=== PATIENT | female | born 1985 | race Caucasian/White ===

== ENCOUNTER 2020-10-03 09:52 | Emergency (ER) | payer OTHER ==
[2020-10-03] MEDS ORDERED: Sodium Chloride 0.9% 1000 ML 1,000 ML IV STA (10:13)
[2020-10-03] MEDS ORDERED: Zofran 4 MG/2 ML VIAL IV ONE (10:14)
[2020-10-03] MEDS ORDERED: Zofran 4 MG/2 ML VIAL ONE (10:15)
[2020-10-03] MEDS ORDERED: Sodium Chloride 0.9% 1000 ML 1,000 ML ONE ×2 (10:15→12:43)
[2020-10-03 10:34] LABS: Absolute Neutrophil Ct (ANC) 3.71 (1.4-6.9); BASOPHIL % 0.2 % (0.0-0.4); Basophil (Absolute #) 0.01 (0-0.4); Eosinophil % 0.2 % (0.00-5.0); Eosinophil (Absolute #) 0.01 (0-0.5); Hematocrit 37.4 % (35-47); Hemoglobin 12.7 gm/dl (12.0-16.0); Lymphocytes % 8.8 % (24.0-44.0); Mean Cell Volume 104.8 fl (78-100); Mean Corpuscular Hemoglobin 35.6 pg (26-32); Mean Platelet Volume 12.1 fl (7.5-11.0); Monocyte (Absolute #) 0.43 (0.0-1.3); Monocytes % 9.4 % (0.0-12.0); Neutrophil % 81.4 % (36.0-66.0); Platelet Count 68 K/mm3 (150-450); Red Blood Count 3.57 M/mm3 (4.1-5.4); Red Cell Distribution Width 14.4 % (11.5-14.0); White Blood Count 4.6 K/mm3 (4.0-10.5)
[2020-10-03 10:46] LABS: INR 1.49 (0.8-3.0); PROTIME 16.9 SECONDS (9.95-12.35)
[2020-10-03 10:47] LABS: ALBUMIN 4.6 g/dL (3.5-5.0); ALKALINE PHOSPHATASE 314 U/L (38-126); AMYLASE 59 U/L (30-110); ANION GAP 20.3 MEQ/L (5-15); BLOOD UREA NITROGEN 4 mg/dL (7-17); CHLORIDE 88 mmol/L (98-107); Calcium 9.4 mg/dL (8.4-10.2); Carbon Dioxide 25 mmol/L (22-30); Creatinine 1 0.49 mg/dL (0.52-1.04); EST GLOMERULAR FILTRATION RATE > 60.0 ML/MIN; Glucose 138 mg/dL (74-106); LIPASE 296 U/L (23-300); SGOT/AST 566 U/L (14-36); SODIUM 131 mmol/L (137-145); Total Protein 9.3 g/dL (6.3-8.2)
[2020-10-03 10:54] LABS: Potassium 2.8 mmol/L (3.5-5.1)
[2020-10-03 10:55] LABS: SGPT/ALT 77 U/L (0-35)
[2020-10-03] MEDS ORDERED: Klor Con 10 MEQ PO ONE ×2 (10:56→11:06)
[2020-10-03] MEDS ORDERED: Enulose 10 GM/15 ML PO STA (10:58)
[2020-10-03 11:00] LABS: Slide Review 1 YES
[2020-10-03] MEDS ORDERED: POTASSIUM CHLORIDE 20 mEq IN WATER 100ML 100 ML IV ONE ×2 (11:06→13:15)
[2020-10-03] MEDS ORDERED: Magnesium 1 Gm / 100 Ml D5W*** 100 ML IV ONE ×2 (11:06→11:53)
[2020-10-03] MEDS: POTASSIUM CHLORIDE 20 mEq IN WATER 100ML 20 MEQ/100 ML BAG IV SCH ×2 (11:08→13:15)
[2020-10-03] MEDS: Magnesium 1 Gm / 100 Ml D5W*** 100 ML IV SCH ×2 (11:08→11:53)
--- NOTE | 2020-10-03 12:06 | ERPHSYRPT ---
- History of Present Illness Time Seen by Provider: 10/03/20 10:35 Source: patient Exam Limitations: no limitations Patient Subjective Stated Complaint: my Dr told me to come to the hospital for severe dehydration and im jaundice Triage Nursing Assessment: pt to ED c/o abnormal labs, "jaundice and dehydrated," and was sent to ED by Dr. Perez. reports she had labs drawn sometime this week and she was called yesterday and told to come in but could not until today. denies any complaints currently. appears jaundice in face and eyes. denies ETOH abuse. also appears to be shaking and pt states she has not eating or drank anything for about 1 wk d/t no appetitte and nausesated after attempting PO. Physician History: 34 years old generally healthy female sent in ER by PCP for abnormal labs. Patient reports she has been having decreased oral intake for almost 1 week with lack of appetite generalized feeling of malaise and nausea which gets worse with oral intake without any vomiting. She is also having generalized sensation of abdominal bloating/distention. She has jaundice which is worsening for almost 1 week. She denies any recent fever chills, taking Tylenol, IV drug use. She did used to drink once or twice a week but has not been drinking lately. No history of liver problems in the past. Timing/Duration: week(s) (1), gradual onset, worse Severity: moderate Associated Symptoms: nausea, abdominal pain, loss of appetite, malaise, weakness, No vomiting, No fever Allergies/Adverse Reactions: No Known Drug Allergies Allergy (Unverified 10/03/20 10:14) Home Medications: Norethindrone 0.35 mg PO DAILY 10/03/20 [History] Hx Tetanus, Diphtheria Vaccination/Date Given: Yes Hx Influenza Vaccination/Date Given: No Hx Pneumococcal Vaccination/Date Given: No Immunizations Up to Date: Yes Travel Risk - International Travel Have you traveled outside of the country in past 3 weeks: No - Coronavirus Screening Are you exhibiting any of the following symptoms?: No Close contact with a COVID-19 positive Pt in past 14-21 Days: No - Review of Systems Constitutional: Fatigue, Malaise, Weakness Eyes: No Symptoms, Other (Icterus) Ears, Nose, & Throat: No Symptoms Respiratory: No Symptoms Cardiac: No Symptoms Abdominal/Gastrointestinal: Abdominal Pain, Nausea, Appetite Changes Genitourinary Symptoms: No Symptoms Musculoskeletal: Myalgias Skin: No Symptoms Neurological: No Symptoms Psychological: No Symptoms Endocrine: No Symptoms Hematologic/Lymphatic: No Symptoms Immunological/Allergic: No Symptoms - Past Medical History Pertinent Past Medical History: No - Past Surgical History Past Surgical History: Yes Musculoskeletal: Orthopedic Surgery Other Surgical History: L shoulder at age 17 - Social History Smoking Status: Never smoker Exposure to second hand smoke: No Drug Use: none Patient Lives Alone: No - Female History Hx Now: No (menstrating now) - Nursing Vital Signs Nursing Vital Signs: Initial Vital Signs Temperature 97.8 F 10/03/20 10:03 Pulse Rate 130 H 10/03/20 10:03 Respiratory Rate 24 10/03/20 10:03 Blood Pressure 151/122 10/03/20 10:03 O2 Sat by Pulse Oximetry 97 10/03/20 10:03 Pain Scale Pain Intensity 0 - Physical Exam General Appearance: no apparent distress, alert Eye Exam: PERRL/EOMI, scleral icterus Ears, Nose, Throat Exam: normal ENT inspection, TMs normal, pharynx normal Neck Exam: normal inspection, non-tender, supple, full range of motion Respiratory Exam: normal breath sounds, lungs clear Cardiovascular Exam: normal heart sounds, tachycardia Gastrointestinal/Abdomen Exam: soft, normal bowel sounds, tenderness (Minimal upper abdominal tenderness) Back Exam: normal inspection, normal range of motion Extremity Exam: normal inspection Neurologic Exam: alert, oriented x 3, cooperative, digital court reporter II-XII nml as tested, normal mood/affect Skin Exam: normal color SpO2 Interpretation: normal SpO2: 97 O2 Delivery: Room Air - Course EKG Interpreted by Me: RATE, Sinus Tach (130), NORMAL AXIS, prolonged QT i nterval Ordered Tests: Active Orders 24 hr Category Date Time Status EKG-ER Only STAT Care 10/03/20 10:13 Active IV Insertion STAT Care 10/03/20 10:14 Active IV Insertion-2nd Peripheral STAT Care 10/03/20 11:24 Active ABDOMEN AND PELVIS W CONTRAST [CT] Stat Exams 10/03/20 10:35 Taken ACETAMINOPHEN Stat Lab 10/03/20 10:15 Completed AMYLASE Stat Lab 10/03/20 10:13 Completed BLOOD CULTURE Stat Lab 10/03/20 11:05 Received BLOOD CULTURE Stat Lab 10/03/20 11:30 Received CBC W DIFF Stat Lab 10/03/20 10:13 Completed CMP Stat Lab 10/03/20 10:13 Completed CULTURE,URINE Stat Lab 10/03/20 12:37 Received LIPASE Stat Lab 10/03/20 10:13 Completed Lactic Acid Stat Lab 10/03/20 11:03 Completed Lactic Acid Stat Lab 10/03/20 13:50 Completed MAGNESIUM Stat Lab 10/03/20 10:13 Completed PROTIME WITH INR Stat Lab 10/03/20 10:13 Completed UA W/RFX UR CULTURE Stat Lab 10/03/20 12:37 Completed Medication Summary Generic Name Dose Route Start Last Admin Trade Name Nancy PRN Reason Stop Dose Admin Magnesium Sulfate/Dextrose 100 mls @ 100 mls/hr 10/03/20 11:00 10/03/20 11:53 Magnesium 1 Gm / 100 Ml D5w IV 10/03/20 12:59 100 mls/hr Q1H [place] Administration Potassium Chloride 20 meq in 100 mls @ 50 mls/hr 10/03/20 11:00 10/03/20 13:15 Potassium Chloride 20 Meq In Water 100ml IV 10/03/20 14:59 50 mls/hr Q2H [place] Administration Sodium Chloride 1,000 mls @ 100 mls/hr 10/03/20 12:45 10/03/20 12:44 Sodium Chloride 0.9% 1000 Ml IV 11/02/20 12:44 100 mls/hr .Q10H [place] Administration Discontinued Medications Generic Name Dose Route Start Last Admin Trade Name Nancy PRN Reason Stop Dose Admin Sodium Chloride 1,000 mls @ 500 mls/hr 10/03/20 10:13 10/03/20 12:59 Sodium Chloride 0.9% 1000 Ml IV 10/03/20 12:12 Infused .Q2H STA Infusion Sodium Chloride Confirm 10/03/20 10:15 Sodium Chloride 0.9% 1000 Ml Administered 10/03/20 10:16 Dose 1,000 mls @ ud .ROUTE .STK-MED ONE Piperacillin Sod/Tazobactam 100 mls @ 200 mls/hr 10/03/20 12:09 10/03/20 12:33 Sod 3.375 gm/ Sodium Chloride IV 10/03/20 12:38 200 mls/hr STAT ONE Administration Sodium Chloride Confirm 10/03/20 12:29 Sodium Chloride 100ml Mini-Bag Plus Administered 10/03/20 12:30 Dose 100 mls @ ud IV .STK-MED ONE Lactulose 20 g 10/03/20 10:58 10/03/20 11:22 Enulose 10 Gm/15 Ml PO 10/03/20 10:59 20 g ONCE STA Administration Ondansetron HCl 4 mg 10/03/20 10:14 10/03/20 10:16 Zofran 4 Mg/2 Ml Vial IV 10/03/20 10:15 4 mg STAT ONE Administration Ondansetron HCl Confirm 10/03/20 10:15 Zofran 4 Mg/2 Ml Vial Administered 10/03/20 10:16 Dose 4 mg .ROUTE .STK-MED ONE Piperacillin Sod/Tazobactam Sod Confirm 10/03/20 12:29 Zosyn 3.375 Gm Vial Administered 10/03/20 12:30 Dose 3.375 gm IV .STK-MED ONE Potassium Chloride 40 meq 10/03/20 10:56 10/03/20 11:07 Klor Con 10 Meq PO 10/03/20 10:57 40 meq STAT ONE Administration Potassium Chloride Confirm 10/03/20 11:06 Klor Con 10 Meq Administered 10/03/20 11:07 Dose 40 meq PO .STK-MED ONE Lab/Rad Data: Laboratory Result Diagrams 10/03/20 10:13 10/03/20 10:13 Laboratory Results 10/03/20 10/03/20 10/03/20 Range/Units 13:50 12:37 11:03 WBC (4.0-10.5) K/mm3 RBC (4.1-5.4) M/mm3 Hgb (12.0-16.0) gm/dl Hct (35-47) % MCV (78-100) fl MCH (26-32) pg MCHC (32-36) g/dl RDW (11.5-14.0) % Plt Count (150-450) K/mm3 MPV (7.5-11.0) fl Gran % (36.0-66.0) % Eos # (Auto) (0-0.5) Absolute Lymphs (auto) (1.0-4.6) Absolute Monos (auto) (0.0-1.3) Lymphocytes % (24.0-44.0) % Monocytes % (0.0-12.0) % Eosinophils % (0.00-5.0) % Basophils % (0.0-0.4) % Absolute Granulocytes (1.4-6.9) Basophils # (0-0.4) PT (9.95-12.35) SECONDS INR (0.8-3.0) Sodium (137-145) mmol/L Potassium (3.5-5.1) mmol/L Chloride (98-107) mmol/L Carbon Dioxide (22-30) mmol/L Anion Gap (5-15) MEQ/L BUN (7-17) mg/dL Creatinine (0.52-1.04) mg/dL Estimated GFR ML/MIN Glucose (74-106) mg/dL Lactic Acid 3.0 H 5.3 H (0.4-2.0) Calcium (8.4-10.2) mg/dL Magnesium (1.6-2.3) mg/dL Total Bilirubin (0.2-1.3) mg/dL AST (14-36) U/L ALT (0-35) U/L Alkaline Phosphatase (38-126) U/L Ammonia (9-30) umol/L Serum Total Protein (6.3-8.2) g/dL Albumin (3.5-5.0) g/dL Amylase (30-110) U/L Lipase (23-300) U/L Urine Color YSED (YELLOW) Urine Appearance CLEAR (CLEAR) Urine pH 7.0 (5-6) Ur Specific [place] S3 (1.005-1.025) Urine Protein NEGATIVE (Negative) Urine Ketones NEGATIVE (NEGATIVE) Urine Blood LARGE (0-5) King/ul Urine Nitrite NEGATIVE (NEGATIVE) Urine Bilirubin MODERATE (NEGATIVE) Urine Urobilinogen 4 (0-1) mg/dL Ur Leukocyte Esterase NEGATIVE (NEGATIVE) Urine WBC (Auto) 3-5 (0-5) /HPF Urine RBC (Auto) 3-5 (0-2) /HPF U Epithel Cells (Auto) RARE (FEW) /HPF Urine Bacteria (Auto) RARE (NEGATIVE) /HPF Urine Culture Reflexed YES (NO) Urine Glucose NEGATIVE (NEGATIVE) mg/dL Acetaminophen (10-30) ug/ml Slides for Path Review 10/03/20 10/03/2021 Range/Units 10:15 10:13 10:13 WBC (4.0-10.5) K/mm3 RBC (4.1-5.4) M/mm3 Hgb (12.0-16.0) gm/dl Hct (35-47) % MCV (78-100) fl MCH (26-32) pg MCHC (32-36) g/dl RDW (11.5-14.0) % Plt Count (150-450) K/mm3 MPV (7.5-11.0) fl Gran % (36.0-66.0) % Eos # (Auto) (0-0.5) Absolute Lymphs (auto) (1.0-4.6) Absolute Monos (auto) (0.0-1.3) Lymphocytes % (24.0-44.0) % Monocytes % (0.0-12.0) % Eosinophils % (0.00-5.0) % Basophils % (0.0-0.4) % Absolute Granulocytes (1.4-6.9) Basophils # (0-0.4) PT 16.9 H (9.95-12.35) SECONDS INR 1.49 (0.8-3.0) Sodium (137-145) mmol/L Potassium (3.5-5.1) mmol/L Chloride (98-107) mmol/L Carbon Dioxide (22-30) mmol/L Anion Gap (5-15) MEQ/L BUN (7-17) mg/dL Creatinine (0.52-1.04) mg/dL Estimated GFR ML/MIN Glucose (74-106) mg/dL Lactic Acid (0.4-2.0) Calcium (8.4-10.2) mg/dL Magnesium (1.6-2.3) mg/dL Total Bilirubin (0.2-1.3) mg/dL AST (14-36) U/L ALT (0-35) U/L Alkaline Phosphatase (38-126) U/L Ammonia 118 H (9-30) umol/L Serum Total Protein (6.3-8.2) g/dL Albumin (3.5-5.0) g/dL Amylase (30-110) U/L Lipase (23-300) U/L Urine Color (YELLOW) Urine Appearance (CLEAR) Urine pH (5-6) Ur Specific [place] (1.005-1.025) Urine Protein (Negative) Urine Ketones (NEGATIVE) Urine Blood (0-5) King/ul Urine Nitrite (NEGATIVE) Urine Bilirubin (NEGATIVE) Urine Urobilinogen (0-1) mg/dL Ur Leukocyte Esterase (NEGATIVE) Urine WBC (Auto) (0-5) /HPF Urine RBC (Auto) (0-2) /HPF U Epithel Cells (Auto) (FEW) /HPF Urine Bacteria (Auto) (NEGATIVE) /HPF Urine Culture Reflexed (NO) Urine Glucose (NEGATIVE) mg/dL Acetaminophen < 10 L (10-30) ug/ml Slides for Path Review 10/03/20 10/03/20 Range/Units 10:13 10:13 WBC 4.6 (4.0-10.5) K/mm3 RBC 3.57 L (4.1-5.4) M/mm3 Hgb 12.7 (12.0-16.0) gm/dl Hct 37.4 (35-47) % MCV 104.8 H (78-100) fl MCH 35.6 H (26-32) pg MCHC 34.0 (32-36) g/dl RDW 14.4 H (11.5-14.0) % Plt Count 68 L (150-450) K/mm3 MPV 12.1 H (7.5-11.0) fl Gran % 81.4 H (36.0-66.0) % Eos # (Auto) 0.01 (0-0.5) Absolute Lymphs (auto) 0.40 L (1.0-4.6) Absolute Monos (auto) 0.43 (0.0-1.3) Lymphocytes % 8.8 L (24.0-44.0) % Monocytes % 9.4 (0.0-12.0) % Eosinophils % 0.2 (0.00-5.0) % Basophils % 0.2 (0.0-0.4) % Absolute Granulocytes 3.71 (1.4-6.9) Basophils # 0.01 (0-0.4) PT (9.95-12.35) SECONDS INR (0.8-3.0) Sodium 131 L (137-145) mmol/L Potassium 2.8 L* (3.5-5.1) mmol/L Chloride 88 L (98-107) mmol/L Carbon Dioxide 25 (22-30) mmol/L Anion Gap 20.3 H (5-15) MEQ/L BUN 4 L (7-17) mg/dL Creatinine 0.49 L (0.52-1.04) mg/dL Estimated GFR > 60.0 ML/MIN Glucose 138 H (74-106) mg/dL Lactic Acid (0.4-2.0) Calcium 9.4 (8.4-10.2) mg/dL Magnesium 1.0 L* (1.6-2.3) mg/dL Total Bilirubin 19.00 H (0.2-1.3) mg/dL AST 566 H (14-36) U/L ALT 77 H (0-35) U/L Alkaline Phosphatase 314 H (38-126) U/L Ammonia (9-30) umol/L Serum Total Protein 9.3 H (6.3-8.2) g/dL Albumin 4.6 (3.5-5.0) g/dL Amylase 59 (30-110) U/L Lipase 296 (23-300) U/L Urine Color (YELLOW) Urine Appearance (CLEAR) Urine pH (5-6) Ur Specific [place] (1.005-1.025) Urine Protein (Negative) Urine Ketones (NEGATIVE) Urine Blood (0-5) King/ul Urine Nitrite (NEGATIVE) Urine Bilirubin (NEGATIVE) Urine Urobilinogen (0-1) mg/dL Ur Leukocyte Esterase (NEGATIVE) Urine WBC (Auto) (0-5) /HPF Urine RBC (Auto) (0-2) /HPF U Epithel Cells (Auto) (FEW) /HPF Urine Bacteria (Auto) (NEGATIVE) /HPF Urine Culture Reflexed (NO) Urine Glucose (NEGATIVE) mg/dL Acetaminophen (10-30) ug/ml Slides for Path Review YES - Progress Progress Note: 10/03/20 12:06 She is given fluid bolus, work-up showed normal white count and H&H with a platelet of 68 and INR 1.4. She has liver failure with elevated transaminases and bilirubin of 19. She also has hypokalemia 2.8 and hypomagnesium 1.0. She is getting replacements. I have checked her ammonia level as patient seemed a little slow to response and it is 118. She would be given oral lactulose. I have obtained CT abdomen pelvis with contrast which showed fatty liver with little fluid around and finding suggesting of hepatitis but no other acute intra-abdominal findings. Patient is tachycardic on presentation and has a lactate of 5.3, will give her fluid bolus per protocol. I would also give her a dose of antibiotic as well although elevation in lactate seems secondary to liver failure. I believe patient needs higher level of care with GI/hepatology services. I have discussed with Dr. Milton Sam at [place] [facility], do not feel comfortable taking patient at [place] and recommended transfer to hepatology. Transfer center is contacted. I have discussed with Dr. Gonzalez pathology and patient is accepted for trans [facility]. I have discussed plan with patient of going to [facility] but she does not want to go there at all. She wants to go to [place]. 10/03/20 12:40 I have discussed with Dr. Lou at [facility] and patient is accepted for transfer initially but after discussion with GI on-call at [facility] it was recommended to transfer to . Plan discussed with patient and she agrees with it now. 10/03/20 12:40 10/03/20 14:25 Later patient showed up and he revealed that patient drinks heavily un til lately and patient did confirm but she says that she has stopped drinking almost 2 weeks ago. Her hepatic failure could be secondary to alcohol-related. Discussed with Dr.: Other (Dr. Milton Sam [facility]. Dr. Gonzalez . Dr. Lou [facility]) Counseled pt/family regarding: lab results, diagnosis, need for follow-up, rad results - Departure Departure Disposition: Transfer Clinical Impression: Hypokalemia, Hypomagnesemia, Lactic acidosis, Alcohol abuse Hepatic failure Qualifiers: Liver failure chronicity: acute Hepatic coma status: without hepatic coma Qualified Code(s): K72.00 - Acute and subacute hepatic failure without coma Condition: Serious Critical Care Time: Yes Critical Care Time(excluding separately billable procedures): Critical 75-104 mins Referrals: ANAMIKA COOK [Primary Care Provider] -
[2020-10-03] MEDS ORDERED: Zosyn 3.375 GM Vial 3.375 GM in Sodium Chloride 100ML MINI-BAG PLUS 100 ML IV ONE (12:09)
[2020-10-03] MEDS ORDERED: Zosyn 3.375 GM Vial IV ONE (12:29)
[2020-10-03] MEDS ORDERED: Sodium Chloride 100ML MINI-BAG PLUS 100 ML IV ONE (12:29)
[2020-10-03] MEDS ORDERED: Sodium Chloride 0.9% 1000 ML 1,000 ML IV SCH (12:45)
[2020-10-03 13:21] LABS: Appearance CLEAR (CLEAR); Bacteria RARE /HPF (NEGATIVE); Bilirubin MODERATE (NEGATIVE); Blood LARGE Ery/ul (0-5); Epithelial Cells RARE /HPF (FEW); Glucose NEGATIVE (NEGATIVE); Ketones NEGATIVE (NEGATIVE); Leukocyte Esterase NEGATIVE (NEGATIVE); Nitrite NEGATIVE (NEGATIVE); Protein,Urine Dip NEGATIVE (Negative); Urobilinogen 4 mg/dL (0-1)
[2020-10-03 15:15] VITALS: BP 114/82; PULSE 108
[2020-10-03 15:29] VITALS: O2SAT 97
--- NOTE | 2020-10-03 17:02 | XRAY ---
Indication: General abdomen discomfort. Dehydration. Multiple contiguous axial images obtained through the abdomen and pelvis using 80 cc Isovue 370 contrast only. Comparison: None Lung bases are clear. Heart is not enlarged. Noncontrasted stomach and bowel loops appear nonobstructed. Normal appendix. Mildly distended gallbladder without gallstones or biliary distention. Fatty hepatomegaly measuring 23.7 cm. Splenomegaly measuring 14 cm. 2.2 cm right mid renal cyst. There is tiny infrahepatic fluid along the right colic gutter. No walled off fluid collection or free air. Incidental tampon in situ. Remaining liver, gallbladder, pancreas, spleen, adrenal glands, kidneys, ureters, bladder, and aorta appear unremarkable. No pathologic retroperitoneal lymphadenopathy. Osseous structures intact with minimal degenerative changes throughout the thoracolumbar spine. Impression: 1. Fatty hepatomegaly, splenomegaly, and right renal cyst. 2. Mildly distended gallbladder. Sonogram may yield further information if clinically warranted. 3. Nonspecific tiny right colic gutter free fluid. Comment: Preliminary interpretation was made by [facility]. No critical discrepancy.
== END 2020-10-03 15:40 | disposition short-term general hospital (02) ==
LOC: ED 09:52
DX: E87.6 Hypokalemia (principal); E83.42 Hypomagnesemia; E87.2 Acidosis; F10.10 Alcohol abuse, uncomplicated; K72.00 Acute and subacute hepatic failure without coma; R11.0 Nausea; R10.9 Unspecified abdominal pain; R63.0 Anorexia; R53.81 Other malaise; R53.1 Weakness
CPT/HCPCS: 36000; 36415; 74177; 80053; 80074; 80307; 81001; 82140; 82150; 83605; 83690; 83735; 85025; 85610; 87040; 87086; 93005; 96360; 96361; 96365; 96366; 96367; 96368; 96374; 99285; 99291; 99292; J2405; J3475; J3480; A9270-GY

== ENCOUNTER 2023-03-12 18:49 | Observation (INO) | payer OTHER ==
[2023-03-12 19:57] LABS: Amphetamine,Urine NEGATIVE (NEGATIVE); Barbiturate,Urine NEGATIVE (NEGATIVE); Benzodiazepine,Urine NEGATIVE (NEGATIVE); Cocaine,Urine NEGATIVE (NEGATIVE); Methadone,Urine NEGATIVE (NEGATIVE); Opiate,Urine NEGATIVE (NEGATIVE); PCP,Urine NEGATIVE (NEGATIVE); THC,Urine NEGATIVE (NEGATIVE)
[2023-03-12 20:21] LABS: Appearance Clear (Clear); Bacteria None Seen /HPF (None Seen); Bilirubin Negative (Negative); Blood Negative (Negative); Epithelial Cells None Seen /HPF (None Seen); Glucose, Urine Negative (Negative); Hyaline Casts NONE SEEN /LPF (0-2); Ketones Negative (Negative); Leukocyte Esterase Small (Negative); Nitrite Negative (Negative); Ph 7.5 (4.6-8.0); Protein,Urine Dip Negative (Negative); RBC 0-2 /HPF (0-5)
[2023-03-12 20:22] LABS: ADD URINE CULTURE? NO (NO)
[2023-03-12] MEDS ORDERED: TYLENOL EXTRA STRENGTH 500 MG PO PRN (21:05)
[2023-03-12] MEDS ORDERED: Nubain 10 MG/ML IV PRN (21:06)
[2023-03-13 04:33] VITALS: O2SAT 100
[2023-03-13 06:49] VITALS: BP 153/73; PULSE 65
== END 2023-03-13 06:50 | disposition home or self-care (01) ==
LOC: OB 18:49
PROVIDERS: ADMIT Obstetrics & Gynecology; ATTEND Obstetrics & Gynecology
DX: Z34.83 Encounter for supervision of other normal pregnancy, third trimester (principal); Z3A.38 38 weeks gestation of pregnancy
CPT/HCPCS: 80307; 81001; G0378; G0379; A9270-GY

== ENCOUNTER 2023-03-15 01:03 | Inpatient (IN) | payer OTHER ==
[2023-03-15] MEDS ORDERED: XYLOCAINE 1% HCL 20 ML MDV IJ PRN (03:10)
[2023-03-15] MEDS ORDERED: Ephedrine Sulfate 50 MG/ML IV PRN (03:19)
[2023-03-15] MEDS ORDERED: Zofran 4 MG/2 ML VIAL IV PRN (06:00)
[2023-03-15] MEDS ORDERED: PITOCIN 30 UNITS/ LR 500 ML 30 UNITS/500 ML PLAST..BAG IV SCH (07:00)
[2023-03-15] MEDS ORDERED: FENTANYL 2 MCG-BUPIV 0.125%-NS 250 ML Epidur 250 ML EPIDURAL SCH (07:00)
[2023-03-15] MEDS ORDERED: Lactated Ringers 1,000 ML IV SCH (07:00)
[2023-03-15] MEDS ORDERED: Lactated Ringers 1,000 ML IV ONE (07:00)
[2023-03-15 07:12] LABS: Absolute Neutrophil Ct (ANC) 5.39 x10^3/uL (1.4-6.9); BASOPHIL % 0.4 % (0.0-0.4); Basophil (Absolute #) 0.03 x10^3/uL (0-0.4); Eosinophil % 0.8 % (0.00-5.0); Eosinophil (Absolute #) 0.06 x10^3/uL (0-0.5); Hematocrit 35.1 % (35-47); Hemoglobin 11.6 g/dL (12.0-16.0); IMMATURE GRAN # 0.02 x10^3u/L (0.00-0.03); IMMATURE GRAN % 0.3 % (0.00-0.4); Lymphocytes % 17.9 % (24.0-44.0); Mean Cell Volume 87.8 fL (78-100); Mean Platelet Volume 11.1 fL (7.5-11.0); Monocyte (Absolute #) 0.47 x10^3/uL (0.0-1.3); Monocytes % 6.5 % (0.0-12.0); Neutrophil % 74.1 % (36.0-66.0); Platelet Count 123 x10^3/uL (150-450); Red Cell Distribution Width 13.8 % (11.5-14.0); White Blood Count 7.3 x10^3/uL (4.0-10.5)
[2023-03-15 07:49] LABS: ABO TYPING O; Antibody Screen NEGATIVE (NEGATIVE); RH TYPING POSITIVE
[2023-03-15 08:22] LABS: Slide Review 1 YES
[2023-03-15] MEDS ORDERED: APRESOLINE 20 MG/ML INJ ONE (10:57)
[2023-03-15 18:44] LABS: Amphetamine,Urine NEGATIVE (NEGATIVE); Barbiturate,Urine NEGATIVE (NEGATIVE); Benzodiazepine,Urine NEGATIVE (NEGATIVE); Cocaine,Urine NEGATIVE (NEGATIVE); Methadone,Urine NEGATIVE (NEGATIVE); Opiate,Urine NEGATIVE (NEGATIVE); PCP,Urine NEGATIVE (NEGATIVE); THC,Urine NEGATIVE (NEGATIVE)
[2023-03-15 19:27] LABS: Appearance Clear (Clear); Bacteria Rare /HPF (None Seen); Bilirubin Negative (Negative); Blood Negative (Negative); Epithelial Cells Moderate /HPF (None Seen); Glucose, Urine Negative (Negative); Hyaline Casts NONE SEEN /LPF (0-2); Ketones Negative (Negative); Leukocyte Esterase Small (Negative); Nitrite Negative (Negative); Protein,Urine Dip 30 (Negative); RBC 0-2 /HPF (0-5)
[2023-03-15 19:28] LABS: ADD URINE CULTURE? NO (NO)
[2023-03-15] MEDS ORDERED: Dermoplast Spray TP PRN (22:01)
[2023-03-15] MEDS ORDERED: TYLENOL EXTRA STRENGTH 500 MG PO PRN (22:01)
[2023-03-15] MEDS ORDERED: Mylicon 80MG PO PRN (22:01)
[2023-03-15] MEDS ORDERED: LANSINOH 40 GM TOP PRN (22:01)
[2023-03-15] MEDS ORDERED: TUCKS TP PRN (22:01)
[2023-03-15] MEDS: MOTRIN 400 MG PO PRN (22:17)
[2023-03-16 05:31] LABS: Absolute Neutrophil Ct (ANC) 4.87 x10^3/uL (1.4-6.9); BASOPHIL % 0.5 % (0.0-0.4); Basophil (Absolute #) 0.04 x10^3/uL (0-0.4); Eosinophil % 1.2 % (0.00-5.0); Eosinophil (Absolute #) 0.09 x10^3/uL (0-0.5); Hematocrit 34.9 % (35-47); Hemoglobin 11.4 g/dL (12.0-16.0); IMMATURE GRAN # 0.02 x10^3u/L (0.00-0.03); IMMATURE GRAN % 0.3 % (0.00-0.4); Lymphocyte (Absolute #) 1.93 x10^3/uL (1.0-4.6); Lymphocytes % 25.7 % (24.0-44.0); Mean Cell Volume 88.8 fL (78-100); Mean Corpuscular Hgb Concent. 32.7 g/dL (32-36); Mean Platelet Volume 10.8 fL (7.5-11.0); Monocyte (Absolute #) 0.56 x10^3/uL (0.0-1.3); Monocytes % 7.5 % (0.0-12.0); Neutrophil % 64.8 % (36.0-66.0); Platelet Count 118 x10^3/uL (150-450); Red Blood Count 3.93 x10^6/uL (4.1-5.4); Red Cell Distribution Width 13.7 % (11.5-14.0); White Blood Count 7.5 x10^3/uL (4.0-10.5)
--- NOTE | 2023-03-16 11:36 | PCM.NOTE ---
Date and Time: 03/16/23 1135 Subjective Assessment: ppd 1 sp pt resting in bed and doing well able to ambulate and tolerate diet vss afebrile abd; soft uterus; firm lochia; mild a/p sp ppd 1 anticipate discharge tomorrow OBJECTIVE DATA Vital Signs: Vital Signs - 24 hr Temp Pulse Resp BP BP Pulse Ox 03/16/23 08:00 97.1 F 64 18 157/74 99 03/16/23 03:00 48 L 18 158/74 99 03/15/23 22:00 97.8 F 46 L 16 145/69 95 03/15/23 18:15 46 L 17 152/73 100 03/15/23 16:15 52 L 16 151/79 100 03/15/23 15:15 44 L 16 142/68 100 03/15/23 14:45 44 L 16 147/73 100 03/15/23 14:15 45 L 16 143/67 100 03/15/23 14:00 98.8 F 42 L 16 149/76 100 03/15/23 13:45 47 L 16 117/60 99 03/15/23 13:30 98.8 F 55 L 18 141/64 100 03/15/23 13:19 65 18 167/78 100 03/15/23 13:00 47 L 17 159/74 99 03/15/23 12:45 48 L 16 159/72 100 03/15/23 12:30 47 L 16 121/56 98 03/15/23 12:15 52 L 16 129/76 97 03/15/23 12:00 56 L 16 131/64 98 03/15/23 11:45 98.2 F 52 L 16 137/67 95 Pain Assessment - Last Documented Pain Intensity [Lower] 2 Pain Intensity 1 Pain Scale Used 0-10 Pain Scale Intake and Output: Intake & Output 03/13/23 03/14/23 03/15/23 03/16/23 11:59 11:59 11:59 11:59 Intake Total 800 400 Output Total 400 Balance 800 0 Weight 214 kg Lab Results: Lab Results-Last 24 Hours 03/15/23 03/15/23 03/16/23 Range/Units 17:45 17:45 05:20 WBC 7.5 (4.0-10.5) x10^3/uL RBC 3.93 L (4.1-5.4) x10^6/uL Hgb 11.4 L (12.0-16.0) g/dL Hct 34.9 L (35-47) % MCV 88.8 (78-100) fL MCH 29.0 (26-32) pg MCHC 32.7 (32-36) g/dL RDW 13.7 (11.5-14.0) % Plt Count 118 L (150-450) x10^3/uL MPV 10.8 (7.5-11.0) fL Gran % 64.8 (36.0-66.0) % Immature Gran % (Auto) 0.3 (0.00-0.4) % Nucleat RBC Rel Count 0.0 (0.00-0.1) % Eos # (Auto) 0.09 (0-0.5) x10^3/uL Immature Gran # (Auto) 0.02 (0.00-0.03) x10^3u/L Absolute Lymphs (auto) 1.93 (1.0-4.6) x10^3/uL Absolute Monos (auto) 0.56 (0.0-1.3) x10^3/uL Absolute Nucleated RBC 0.00 (0.00-0.01) x10^3u/L Lymphocytes % 25.7 (24.0-44.0) % Monocytes % 7.5 (0.0-12.0) % Eosinophils % 1.2 (0.00-5.0) % Basophils % 0.5 (0.0-0.4) % Absolute Granulocytes 4.87 (1.4-6.9) x10^3/uL Basophils # 0.04 (0-0.4) x10^3/uL Urine Color Dark Yellow A (Yellow) Urine Appearance Clear (Clear) Urine pH 7.0 (4.6-8.0) Ur Specific [place] 1.020 (1.005-1.030) Urine Protein 30 (Negative) Urine Glucose (UA) Negative (Negative) mg/dL Urine Ketones Negative (Negative) Urine Blood Negative (Negative) Urine Nitrite Negative (Negative) Urine Bilirubin Negative (Negative) Urine Urobilinogen 1.0 A (0.2) mg/dL Ur Leukocyte Esterase Small A (Negative) U Hyaline Cast (Auto) NONE SEEN (0-2) /LPF Urine Microscopic RBC 0-2 (0-5) /HPF Urine Microscopic WBC 3-5 (0-5) /HPF Ur Epithelial Cells Moderate A (None Seen) /HPF Urine Bacteria Rare A (None Seen) /HPF Urine Culture Reflexed NO (NO) Urine Opiates Level NEGATIVE (NEGATIVE) Ur Methadone NEGATIVE (NEGATIVE) Urine Barbiturates NEGATIVE (NEGATIVE) Ur Phencyclidine (PCP) NEGATIVE (NEGATIVE) Urine Amphetamine NEGATIVE (NEGATIVE) U Benzodiazepine Level NEGATIVE (NEGATIVE) Urine Cocaine NEGATIVE (NEGATIVE) Urine Marijuana (THC) NEGATIVE (NEGATIVE) Assessment/Plan (1) Vaginal delivery Current Visit: Yes Status: Acute Code(s): O80 - ENCOUNTER FOR FULL-TERM UNCOMPLICATED DELIVERY
[2023-03-16] MEDS: Docusate Sodium 100 MG PO SCH ×2 (23:38→23:39)
[2023-03-17] MEDS: MOTRIN 400 MG PO PRN (06:43)
[2023-03-17] MEDS ORDERED: APRESOLINE 20 MG/ML INJ IV ONE (09:48)
[2023-03-17] MEDS ORDERED: Adacel Vial IM ONE (10:00)
[2023-03-17] MEDS: Adalat CC 30 MG TABLET PO SCH (12:01)
[2023-03-17] MEDS: Docusate Sodium 100 MG PO SCH (12:06)
--- NOTE | 2023-03-17 12:49 | PCM.NOTE ---
Date and Time: 03/17/231247 Subjective Assessment: ppd 2 sp with htn pt resting in bed and doing well ambulating and tolerating diet bp 170/90 abd soft uterus; firm lochia; mild a/p sp with htn will initiate htn protocol will give procardia 30mg xl will hold discharge at this time OBJECTIVE DATA Vital Signs: Vital Signs - 24 hr Temp Pulse Resp BP BP Pulse Ox 03/17/23 12:00 96.3 F 45 L 16 134/56 100 03/17/23 11:45 96.3 F 52 L 16 141/64 100 03/17/23 11:30 96.3 F 52 L 16 143/62 100 03/17/23 11:20 147/70 03/17/23 11:15 96.3 F 50 L 16 132/60 100 03/17/23 11:10 132/60 03/17/23 11:00 130/63 03/17/23 10:50 130/60 03/17/23 10:40 96.3 F 48 L 16 133/63 133/63 100 03/17/23 10:20 141/65 03/17/23 09:55 167/81 03/17/23 09:40 178/83 03/17/23 09:35 97.7 F 53 L 16 195/86 100 03/17/23 06:50 98 F 100 H 18 109/80 98 03/16/23 20:00 98 F 50 L 16 159/74 99 03/16/23 14:00 997.9 F 57 L 18 157/82 98 Pain Assessment - Last Documented Pain Intensity [Lower] 2 Pain Intensity 2 Pain Scale Used 0-10 Pain Scale Intake and Output: Intake & Output 03/15/23 03/16/23 03/17/23 03/18/23 11:59 11:59 11:59 11:59 Intake Total 800 900 500 Output Total 400 Balance 800 500 500 Weight 214 kg Assessment/Plan (1) Vaginal delivery Current Visit: Yes Status: Acute Code(s): O80 - ENCOUNTER FOR FULL-TERM UNCOMPLICATED DELIVERY
[2023-03-17] MEDS: TYLENOL EXTRA STRENGTH 500 MG PO PRN (20:03)
[2023-03-18] MEDS: MOTRIN 400 MG PO PRN (01:20)
[2023-03-18] MEDS: TYLENOL EXTRA STRENGTH 500 MG PO PRN (06:02)
[2023-03-18] MEDS: Docusate Sodium 100 MG PO SCH (06:05)
[2023-03-18] MEDS: Adalat CC 30 MG TABLET PO SCH (09:27)
--- NOTE | 2023-03-18 09:37 | PCM.NOTE ---
Date and Time: 03/18/23934 Subjective Assessment: ppd 3 sp with htn pt resting in bed and doing well able to ambulate and tolerate diet. pt received hydralizaine iv yesterday for bp greater than 170 and had been reduced however with continued elevation and was started on procardia 30mg xl and currently stable. denies glez or visual disturbance and states feeling very well. vss afebrile abd; soft uterus; firm lochia; mild a/psp htn will continue daily procardia 30mg xl upon discharge will dc home today and fu office next week OBJECTIVE DATA Vital Signs: Vital Signs - 24 hr Temp Pulse Resp BP BP Pulse Ox 03/18/23 06:00 97.9 F 76 18 146/80 100 03/18/23 02:00 97.8 F 55 L 18 148/80 99 03/17/23 22:00 97 F 50 L 16 136/69 96 03/17/23 18:01 140/78 03/17/23 16:30 144/84 03/17/23 14:00 142/78 03/17/23 13:10 146/78 03/17/23 13:09 42 L 16 165/87 100 03/17/23 13:00 158/82 03/17/23 12:50 139/72 03/17/23 12:45 96.2 F 43 L 16 139/72 99 03/17/23 12:30 159/78 03/17/23 12:15 96.2 F 43 L 16 157/56 100 03/17/23 12:00 96.3 F 45 L 16 134/56 100 03/17/23 11:45 96.3 F 52 L 16 141/64 100 03/17/23 11:30 96.3 F 52 L 16 143/62 100 03/17/23 11:20 147/70 03/17/23 11:15 96.3 F 50 L 16 132/60 100 03/17/23 11:10 132/60 03/17/23 11:00 130/63 03/17/23 10:50 130/60 03/17/23 10:40 96.3 F 48 L 16 133/63 133/63 100 03/17/23 10:20 141/65 03/17/23 09:55 167/81 03/17/23 09:40 178/83 Pain Assessment - Last Documented Pain Intensity [Lower] 2 Pain Intensity 2 Pain Scale Used 0-10 Pain Scale Intake and Output: Intake & Output 03/15/23 03/16/23 03/17/23 03/18/23 11:59 11:59 11:59 11:59 Intake Total 800 358 145 0246 Output Total 400 Balance 800 023 277 1537 Weight 214 kg Assessment/Plan (1) Vaginal delivery Current Visit: Yes Status: Acute Code(s): O80 - ENCOUNTER FOR FULL-TERM UNCOMPLICATED DELIVERY (2) hypertension Current Visit: Yes Status: Acute Code(s): O16.5 - UNSPECIFIED MATERNAL HYPERTENSION, COMP THE PUERPERIUM
[2023-03-18 09:40] VITALS: BP 145/90; PULSE 68; O2SAT 99
--- NOTE | 2023-03-18 09:42 | PCM.DS ---
Discharge Summary Date of Admission: 03/15/23 09:37 Admitting Physician: LUZ ESCAMILLA DO Consults: Consults on Case 03/15/23 08:00 Notify Anesthesia Provider PRN 03/16/23 09:00 Navigation ONCE Primary Care Provider: MARY HOUGH Allergies Allergies No Known Drug Allergies Allergy (Verified 02/24/23 09:14) Hospital Summary - Hospital Course Hospital Course: pt admitted on march 15 for pitocin induction at 39 wks gestation and delivered live baby girl without complication. during period developed elevated bp greater than 170 and was placed on iv hydralizine which reduced bp however still developed elevated bp requiring procardia 30mg xl and has since been better. at this time pt doing well and stable for discharge and was advised to fu in office in 1 1/2 wks for eval of bp. pt will go home on procardia 30mg xl and all questions answered to her satisfaction. pt stable for discharge at this time. - Vitals & Intake/Output Vital Signs: Vital Signs Temperature 97.9 F 03/18/23 06:00 Pulse Rate 76 03/18/23 06:00 Respiratory Rate 18 03/18/23 06:00 Blood Pressure 146/80 03/18/23 06:00 O2 Sat by Pulse Oximetry 100 03/18/23 06:00 Intake & Output: Intake & Output 03/15/23 03/16/23 03/17/23 03/18/23 11:59 11:59 11:59 11:59 Intake Total 800 542 623 2748 Output Total 400 Balance 800 689 268 8161 Weight 214 kg - Lab Result Diagrams: 03/16/23 05:20 Final Diagnosis/Problem List - Final Discharge Diagnosis/Problem (1) Vaginal delivery Current Visit: Yes Status: Acute Code(s): O80 - ENCOUNTER FOR FULL-TERM UNCOMPLICATED DELIVERY (2) hypertension Current Visit: Yes Status: Acute Code(s): O16.5 - UNSPECIFIED MATERNAL HYPERTENSION, COMP THE PUERPERIUM - Discharge Disposition: Home, Self-Care Condition: Stable Prescriptions: New Nifedipine Xl 30 mg [Adalat CC 30 MG TABLET] 30 mg PO DAILY #30 tablet No Action Sertraline HCl 50 mg [Zoloft 50 mg Tablet] 50 mg PO HS Pnv No.95/Ferrous Fum/Folic AC [ Caplet] 1 mg PO DAILY Aspirin [[place]] 1 mg PO HS Follow up with: MARY HOUGH [Primary Care Provider] - LUZ ESCAMILLA DO [ACTIVE STAFF] - 03/30/23 2:00 pm (needs to fu in office on march 30 for evaluation of blood pressure)
== END 2023-03-18 10:30 | disposition home or self-care (01) | DRG 807 ==
LOC: OB 05:59 → OBSVTOIN 09:37 → OB 09:37
PROVIDERS: ADMIT Obstetrics & Gynecology; ATTEND Obstetrics & Gynecology
PROC: 10E0XZZ Delivery of Products of Conception, External Approach (ICD-10-PCS; principal; 2023-03-15)
DX: O16.5 Unspecified maternal hypertension, complicating the puerperium (principal); Z37.0 Single live birth; Z3A.39 39 weeks gestation of pregnancy; Z20.828 Contact with and (suspected) exposure to other viral communicable diseases
CPT/HCPCS: 36415; 80307; 81001; 85025; 86850; 86900; 86901; 90715; 96372; G0378; G0379; J0360; J2590; A9270-GY

== ENCOUNTER 2023-03-30 13:21 | Emergency (ER) | payer OTHER ==
--- NOTE | 2023-03-30 13:34 | ERPHSYRPT ---
- History of Present Illness Time Seen by Provider: 03/30/23 13:33 Source: patient Exam Limitations: no limitations Physician History: This is a 37-year-old overweight white female who is approximately 2 to 2-1/2 weeks post normal spontaneous vaginal delivery of her third child. She was monitored in the hospital after delivery because of high blood pressure problems. She was seen at her bag builder's office today and she had a systolic blood pressure over 160s and diastolic pressure of over 90s. Patient has had some intermittent headaches but otherwise has been feeling fine. She has had no visual changes. She denies chest pain and she denies shortness of br eath. Patient states that she was given a prescription for extended release nifedipine and she took that medicine at approximately 11 AM today. Her bag builder also called in more of that medication and she was told to take a second 1 but she has not done that yet. Patient has had no nausea vomiting or diarrhea. She has no abdominal pain. She has no dysuria or hematuria. Timing/Duration: week(s) (2.5) Severity: mild (To moderate) Associated Symptoms: headaches (Occasional but does not have one at this time), No nausea, No vomiting, No abdominal pain, No shortness of breath, No chest pain Allergies/Adverse Reactions: No Known Drug Allergies Allergy (Verified 03/30/23 13:40) Home Medications: Sertraline HCl 50 mg [Zoloft 50 mg Tablet] 50 mg PO HS 02/12/23 [History] Nifedipine Xl 30 mg [Adalat CC 30 MG TABLET] 60 mg PO DAILY 03/30/23 [History] Hx Tetanus, Diphtheria Vaccination/Date Given: Yes Hx Influenza Vaccination/Date Given: No Hx Pneumococcal Vaccination/Date Given: No Travel Risk - International Travel Have you traveled outside of the country in past 3 weeks: No - Coronavirus Screening Are you exhibiting any of the following symptoms?: No Close contact with a COVID-19 positive Pt in past 14-21 Days: No - Vaccine Status Have you recieved a Covid-19 vaccination: Yes 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: [place] - Vaccination Dates Comment: pt unsure of date received - Review of Systems Constitutional: No Symptoms Eyes: No Symptoms Ears, Nose, & Throat: No Symptoms Respiratory: No Symptoms Cardiac: No Symptoms Abdominal/Gastrointestinal: No Symptoms Genitourinary Symptoms: No Symptoms Musculoskeletal: No Symptoms Skin: No Symptoms Neurological: No Symptoms Psychological: No Symptoms Endocrine: No Symptoms Hematologic/Lymphatic: No Symptoms Immunological/Allergic: No Symptoms All Other Systems: Reviewed and Negative - Past Medical History Pertinent Past Medical History: Yes Neurological History: No Pertinent History ENT History: No Pertinent History Cardiac History: No Pertinent History Respiratory History: No Pertinent History Endocrine Medical History: No Pertinent History Musculoskeletal History: Degenerative Disk Disease GI Medical History: Cirrhosis History: No Pertinent History Psycho-Social History: Anxiety, Depression Female Reproductive Disorders: No Pertinent History, Fibroids - Past Surgical History Past Surgical History: No Neuro Surgical History: No Pertinent History Cardiac: No Pertinent History Respiratory: No Pertinent History Gastrointestinal: No Pertinent History Genitourinary: No Pertinent History Musculoskeletal: No Pertinent History Female Surgical History: No Pertinent History Other Surgical History: L shoulder at age 17 - Social History Smoking Status: Former smoker Exposure to second hand smoke: No Drug Use: none Patient Lives Alone: No - Nursing Vital Signs Nursing Vital Signs: Initial Vital Signs Temperature 98.9 F 03/30/23 13:32 Pulse Rate 108 H 03/30/23 13:32 Blood Pressure 158/104 03/30/23 13:32 O2 Sat by Pulse Oximetry 97 03/30/23 13:32 Pain Scale Pain Intensity 0 - Physical Exam General Appearance: no apparent distress, alert, anxiety, obese Eye Exam: PERRL/EOMI, eyes nml inspection Ears, Nose, Throat Exam: normal ENT inspection, moist mucous membranes Neck Exam: normal inspection, non-tender, supple, full range of motion Respiratory Exam: normal breath sounds, lungs clear, airway intact, No chest tenderness, No respiratory distress Cardiovascular Exam: tachycardia Gastrointestinal/Abdomen Exam: soft, normal bowel sounds, No tenderness Pelvic Exam: not done (Mild) Rectal Exam: not done Back Exam: normal inspection, normal range of motion, No CVA tenderness, No vertebral tenderness Extremity Exam: normal inspection, normal range of motion, pelvis stable Neurologic Exam: alert, oriented x 3, cooperative, unit control worker II-XII nml as tested, normal mood/affect, nml cerebellar function, nml station & gait Skin Exam: normal color, warm, dry Lymphatic Exam: No adenopathy SpO2 Interpretation: normal O2 Delivery: Room Air - Course Nursing assessment & vital signs reviewed: Yes Ordered Tests: Active Orders 24 hr Category Date Time Status IV Insertion STAT Care 03/30/23 13:42 Active CBC W DIFF Stat Lab 03/30/23 13:46 Completed CMP Stat Lab 03/30/23 13:46 Completed UA W/RFX UR CULTURE Stat Lab 03/30/23 13:46 Completed Medication Summary Discontinued Medications Generic Name Dose Route Start Last Admin Trade Name Freq PRN Reason Stop Dose Admin Hydralazine HCl 5 mg 03/30/23 13:46 Hydralazine Hcl 20 Mg/Ml Vial IV 03/30/23 13:47 STAT ONE Lab/Rad Data: Laboratory Result Diagrams 03/30/23 13:46 03/30/23 13:46 Laboratory Results 03/30/23 03/30/23 03/30/23 Range/Units 13:46 13:46 13:46 WBC 7.4 (4.0-10.5) x10^3/uL RBC 5.12 (4.1-5.4) x10^6/uL Hgb 14.9 (12.0-16.0) g/dL Hct 45.2 (35-47) % MCV 88.3 (78-100) fL MCH 29.1 (26-32) pg MCHC 33.0 (32-36) g/dL RDW 12.8 (11.5-14.0) % Plt Count 148 L (150-450) x10^3/uL MPV 9.6 (7.5-11.0) fL Gran % 69.5 H (36.0-66.0) % Immature Gran % (Auto) 0.3 (0.00-0.4) % Nucleat RBC Rel Count 0.0 (0.00-0.1) % Eos # (Auto) 0.21 (0-0.5) x10^3/uL Immature Gran # (Auto) 0.02 (0.00-0.03) x10^3u/L Absolute Lymphs (auto) 1.54 (1.0-4.6) x10^3/uL Absolute Monos (auto) 0.41 (0.0-1.3) x10^3/uL Absolute Nucleated RBC 0.00 (0.00-0.01) x10^3u/L Lymphocytes % 20.9 L (24.0-44.0) % Monocytes % 5.6 (0.0-12.0) % Eosinophils % 2.8 (0.00-5.0) % Basophils % 0.9 (0.0-0.4) % Absolute Granulocytes 5.13 (1.4-6.9) x10^3/uL Basophils # 0.07 (0-0.4) x10^3/uL Sodium 139 (137-145) mmol/L Potassium 3.7 (3.5-5.1) mmol/L Chloride 105 (98-107) mmol/L Carbon Dioxide 23 (22-30) mmol/L Anion Gap 13.9 (5-15) MEQ/L BUN 12 (7-17) mg/dL Creatinine 0.59 (0.52-1.04) mg/dL Estimated GFR > 60.0 ML/MIN Glucose 96 (74-106) mg/dL Calcium 9.2 (8.4-10.2) mg/dL Total Bilirubin 0.80 (0.2-1.3) mg/dL AST 57 H (14-36) U/L ALT 54 H (0-35) U/L Alkaline Phosphatase 163 H (38-126) U/L Serum Total Protein 8.3 H (6.3-8.2) g/dL Albumin 4.4 (3.5-5.0) g/dL Urine Color Dark Yellow A (Yellow) Urine Appearance Clear (Clear) Urine pH 7.0 (4.6-8.0) Ur Specific Allen 1.020 (1.005-1.030) Urine Protein Trace A (Negative) Urine Glucose (UA) Negative (Negative) mg/dL Urine Ketones Negative (Negative) Urine Blood Trace (Negative) Urine Nitrite Negative (Negative) Urine Bilirubin Negative (Negative) Urine Urobilinogen 1.0 A (0.2) mg/dL Ur Leukocyte Esterase Moderate A (Negative) U Hyaline Cast (Auto) NONE SEEN (0-2) /LPF Urine Microscopic RBC 3-5 (0-5) /HPF Urine Microscopic WBC 3-5 (0-5) /HPF Ur Epithelial Cells Few (None Seen) /HPF Urine Bacteria Rare A (None Seen) /HPF Urine Culture Reflexed NO (NO) - Progress Progress: improved, re-examined Progress Note: 03/30/23 14:42 This patient's medical issue is 1 of moderate complexity. Level complexity and the work-up performed is based on review of the patient's past medical history, review of the patient's medication list, review the patient's drug allergy list, history present illness and physical finds on examination. The work-up in this patient is placement of intravenous line, CBC, CMP and urinalysis. I compared today's work-up results to those that were performed during her last hospitalization. Her initial systolic blood pressure here in the emergency department 158. However the subsequent systolic blood pressures were running 1 28-1 36 and her diastolic blood pressures running 86-98. I therefore held off on providing her with intravenous hydralazine. I reviewed the results of the work-up with her bag builder and we decided that patient will take another 30 mg extended release of her nifedipine this evening and then start the [address] prescription that Dr. Bonds called in. He was fine with her being discharged home. Discussed with : Anish Counseled pt/family regarding: lab results, diagnosis, need for follow-up, rad results Medical Desision Making - Discussion of managment Care discussed with:: PCP (Dr. Bonds patient's bag builder) Agreed on:: Treatment plan, need for follow-up (Keep her appointment for recheck in 1 week) - Diagnostic Testing Diagnostic test were ordered, analyzed, and reviewed by me: Yes - Risk of complications Minimal Risk: Minimal risk of morbidity - Departure Departure Disposition: Home Clinical Impression: hypertension Condition: Stable Critical Care Time: No Referrals: MARY HOUGH [Primary Care Provider] - Follow up/PCP as directed Additional Instructions: Follow the directions that your bag builder gave you which was 2 take another dose of your nifedipine tonight. Fill the new prescription and start that prescription tomorrow morning. Return to the emergency department if you are having headaches, visual changes or poorly controlled blood pressure. Keep your appointment with your bag builder for next week.
[2023-03-30] MEDS ORDERED: APRESOLINE 20 MG/ML INJ IV ONE (13:46)
[2023-03-30 14:03] LABS: Absolute Neutrophil Ct (ANC) 5.13 x10^3/uL (1.4-6.9); BASOPHIL % 0.9 % (0.0-0.4); Basophil (Absolute #) 0.07 x10^3/uL (0-0.4); Eosinophil % 2.8 % (0.00-5.0); Eosinophil (Absolute #) 0.21 x10^3/uL (0-0.5); Hematocrit 45.2 % (35-47); Hemoglobin 14.9 g/dL (12.0-16.0); IMMATURE GRAN # 0.02 x10^3u/L (0.00-0.03); IMMATURE GRAN % 0.3 % (0.00-0.4); Lymphocyte (Absolute #) 1.54 x10^3/uL (1.0-4.6); Lymphocytes % 20.9 % (24.0-44.0); Mean Cell Volume 88.3 fL (78-100); Mean Corpuscular Hemoglobin 29.1 pg (26-32); Mean Platelet Volume 9.6 fL (7.5-11.0); Monocyte (Absolute #) 0.41 x10^3/uL (0.0-1.3); Monocytes % 5.6 % (0.0-12.0); Neutrophil % 69.5 % (36.0-66.0); Platelet Count 148 x10^3/uL (150-450); Red Blood Count 5.12 x10^6/uL (4.1-5.4); Red Cell Distribution Width 12.8 % (11.5-14.0); White Blood Count 7.4 x10^3/uL (4.0-10.5)
[2023-03-30 14:18] LABS: ALBUMIN 4.4 g/dL (3.5-5.0); ALKALINE PHOSPHATASE 163 U/L (38-126); ANION GAP 13.9 MEQ/L (5-15); BLOOD UREA NITROGEN 12 mg/dL (7-17); CHLORIDE 105 mmol/L (98-107); Calcium 9.2 mg/dL (8.4-10.2); Carbon Dioxide 23 mmol/L (22-30); Creatinine 1 0.59 mg/dL (0.52-1.04); EST GLOMERULAR FILTRATION RATE > 60.0 ML/MIN; Glucose 96 mg/dL (74-106); Potassium 3.7 mmol/L (3.5-5.1); SGOT/AST 57 U/L (14-36); SGPT/ALT 54 U/L (0-35); SODIUM 139 mmol/L (137-145); Total Protein 8.3 g/dL (6.3-8.2)
[2023-03-30 14:24] LABS: Appearance Clear (Clear); Bacteria Rare /HPF (None Seen); Bilirubin Negative (Negative); Blood Trace (Negative); Glucose, Urine Negative (Negative); Hyaline Casts NONE SEEN /LPF (0-2); Ketones Negative (Negative); Leukocyte Esterase Moderate (Negative); Nitrite Negative (Negative); Protein,Urine Dip Trace (Negative)
[2023-03-30 14:25] LABS: ADD URINE CULTURE? NO (NO); Epithelial Cells Few /HPF (None Seen)
[2023-03-30 14:49] VITALS: BP 124/77; PULSE 90; O2SAT 96
== END 2023-03-30 14:54 | disposition home or self-care (01) ==
LOC: ED 13:21
DX: O16.5 Unspecified maternal hypertension, complicating the puerperium (principal); Z79.899 Other long term (current) drug therapy
CPT/HCPCS: 36000; 36415; 80053; 81001; 85025; 99283